=== PATIENT | male | born 1945 | race Caucasian/White ===

== ENCOUNTER 2018-03-21 07:51 | Day surgery (SDC) | payer OTHER, MEDICARE, BC ==
[2018-03-21] MEDS ORDERED: LIDOCAINE HCL 1% MPF SOL ONE (08:06)
[2018-03-21] MEDS ORDERED: PROPOFOL 500 MG/50 ML EMU IV ONE (08:06)
[2018-03-21 08:13] VITALS: TEMP 97.6
[2018-03-21 10:07] VITALS: BP 153/78; PULSE 60; RESP 18; O2SAT 96
== END 2018-03-21 12:21 | disposition home or self-care (01) | DRG 951 ==
LOC: SURG 07:51
PROVIDERS: ATTEND Internal Medicine Gastroenterology
DX: Z12.11 Encounter for screening for malignant neoplasm of colon (principal); E11.9 Type 2 diabetes mellitus without complications; K64.8 Other hemorrhoids; Z86.010 Personal history of colon polyps; Z79.4 Long term (current) use of insulin
CPT/HCPCS: 74177; 82962; 99001; Q9967; J2001; J2704

== ENCOUNTER 2019-04-23 11:12 | Inpatient (IN) | payer OTHER, BC, MEDICARE | END 2019-04-26 14:00 | disposition home or self-care (01) | LOC: ED 11:12 → ACUTE CARE 14:05 ==

== ENCOUNTER 2019-06-27 08:44 | Day surgery (SDC) | payer OTHER, BC ==
[~2019-06-27 08:44] MED LIST: LIDOCAINE HCL 1% MPF 30 SOL ONE; PROPOFOL 500 MG/50 ML EMU IV ONE
[2019-06-27] MEDS: FLEET ENEMA PR ONE ×2 (09:52→10:10)
[2019-06-27 11:21] VITALS: O2SAT 95
[2019-06-27 11:50] VITALS: BP 164/75; PULSE 56; RESP 18; TEMP 97.4
== END 2019-06-27 12:12 | disposition home or self-care (01) | DRG 951 ==
LOC: SURG 08:44
PROVIDERS: ATTEND Surgery
DX: Z12.11 Encounter for screening for malignant neoplasm of colon (principal); Z85.038 Personal history of other malignant neoplasm of large intestine; E11.9 Type 2 diabetes mellitus without complications; K63.89 Other specified diseases of intestine
CPT/HCPCS: 82962; A9270-GY; J2001; J2704